=== PATIENT | male | born 1970 | race Asian ===

== ENCOUNTER 2024-11-07 09:20 | Outpatient (CLI) | payer MEDICAID | END 2024-11-07 23:59 | disposition home or self-care (01) | LOC: RAD 09:20 | PROVIDERS: ATTEND Family Medicine | DX: Z12.2 Encounter for screening for malignant neoplasm of respiratory organs (principal); Z87.891 Personal history of nicotine dependence; I25.10 Atherosclerotic heart disease of native coronary artery without angina pectoris; I34.81 Nonrheumatic mitral (valve) annulus calcification | CPT/HCPCS: 71271 ==